=== PATIENT | female | born 1990 | race Caucasian/White ===

== ENCOUNTER 2018-10-02 06:04 | Inpatient (IN) ==
[2018-10-02] MEDS ORDERED: ONDANSETRON 4 MG/2 ML VIAL IV PRN (06:33)
[2018-10-02] MEDS ORDERED: MEPERIDINE 50 MG/1 ML VIAL IM PRN (06:33)
[2018-10-02] MEDS ORDERED: MEPERIDINE 25 MG/1 ML VIAL IM PRN (06:33)
[2018-10-02] MEDS ORDERED: LACTATED RINGERS 250 ML IV ONE (06:33)
[2018-10-02] MEDS ORDERED: OXYTOCIN/LR 20 UNIT/1,000 ML BAG IV SCH (07:00)
[2018-10-02 07:01] LABS: Basophils # 0.1 10*3/uL (0.0-0.2); Basophils % 0.8 % (0.0-0.8); Eosinophils # 0.2 10*3/uL (0.0-0.87); Eosinophils % 2.6 % (0.00-10.9); Hematocrit 29.2 VOL% (35.7-47.0); Hemoglobin 9.8 GM/DL (12.0-16.0); Immature Granulocytes Absolute 0.06 #; Lymphocytes # 1.6 10*3/uL (1.4-4.0); Lymphocytes % 26.6 % (21.3-54.2); Mean Corpuscular HGB Conc 33.6 GM/DL (32-36); Mean Platelet Volume 13.3 FL (9.6-12.0); Monocytes % 8.9 % (1.7-12.7); Neutrophils % 60.1 % (38.7-73.9); Platelet Count 182 T/CUMM (130-400); Red Blood Count 3.32 MC/CUMM (3.8-5.5); Red Cell Distribution Width 12.5 % (9.3-17.3); White Blood Count 6.1 T/CUMM (4-12)
[2018-10-02] MEDS: LACTATED RINGERS 1,000 ML IV SCH ×2 (07:13→17:49)
[2018-10-02 07:19] LABS: Alanine Aminotransferase 15 U/L (13-56); Albumin 2.7 G/DL (3.4-5.0); Alkaline Phosphatase 142 U/L (45-117); Aspartate Amino Transferase 19 U/L (0-37); Bilirubin,Total < 0.39 MG/DL (0.2-1.0); Blood Urea Nitrogen 12 MG/DL (7-18); Calcium 8.7 MG/DL (8.5-10.1); Glucose 75 MG/DL (74-106); Osmolality,Calculated 273.7 MOS/KG (273-304); Total Protein 6.6 G/DL (6.4-8.3)
[2018-10-02] MEDS ORDERED: LACTATED RINGERS 1,000 ML IV ONE (08:14)
[2018-10-02] MEDS ORDERED: CITRIC ACID/SODIUM CITRATE 30 ML UDCUP PO ONE (08:16)
[2018-10-02] MEDS ORDERED: FAMOTIDINE 20 MG/2 ML VIAL IV ONE (08:16)
[2018-10-02] MEDS ORDERED: hydrOXYzine HCL 25 MG/1 ML VIAL IM PRN (08:17)
[2018-10-02] MEDS ORDERED: PROMETHAZINE 25 MG/1 ML VIAL IM ONE (08:17)
[2018-10-02] MEDS ORDERED: diphenhydrAMINE 50 MG/1 ML VIAL IV PRN ×2 (08:17)
[2018-10-02] MEDS ORDERED: NALOXONE 0.4 MG/ML VIAL IV PRN (08:17)
[2018-10-02] MEDS ORDERED: fentaNYL 2 MCG/ROPIV 0.2% EPID 100 ML EPIDURAL SCH (08:30)
[2018-10-02] MEDS ORDERED: LACTATED RINGERS 1,000 ML IV SCH (08:30)
[2018-10-02] MEDS ORDERED: TERBUTALINE 1 MG/1 ML VIAL SUBCUT PRN (10:39)
[2018-10-02] MEDS ORDERED: TERBUTALINE 1 MG/1 ML VIAL SUBCUT ONE (10:43)
[2018-10-02 12:34] LABS: Apearance,Urine CLEAR (Clear); Bilirubin,Urine Negative (Negative); Blood, Urine Negative (Negative); Glucose,Urine (UA) Negative (Negative); Ketones,Urine Negative (Negative); Nitrite,Urine Negative (Negative); Protein,Urine Negative; Urine Color Colorless (Yellow); Urine Specific Gravity 1.003 (1.001-1.035); Urine Urobilinogen < 2.0 EU/DL (0.2-1.0)
[2018-10-02] MEDS: ePHEDrine 50 MG/ML AMP IV PRN ×2 (12:49→13:06)
[2018-10-02] MEDS ORDERED: LIDOCAINE 1% 50 ML VIAL ONE (16:07)
[2018-10-02] MEDS ORDERED: miSOPROStol 200 MCG TABLET ONE (16:08)
[2018-10-02] MEDS ORDERED: METHYLERGONOVINE 0.2 MG/1 ML AMP ONE (16:08)
[2018-10-02 19:32] LABS: Cord Arterial Blood HCO3 18.6 MMOL/L
[2018-10-02 19:39] LABS: Cord Venous Blood HCO3 20.2 MMOL/L; Cord Venous Blood PCO2 46.5 MMHG; Cord Venous Blood PO2 15.5
[2018-10-02] MEDS ORDERED: MEASLES/MUMPS/RUBELLA VACCINE 0.5 ML VIAL SUBCUT ONE (22:50)
[2018-10-02] MEDS ORDERED: WITCH HAZEL PADS 100/JAR TOP PRN (22:50)
[2018-10-02] MEDS ORDERED: DIPH/TET/ACEL PERT BOOSTER VACCINE 0.5 ML VIAL IM ONE (22:50)
[2018-10-02] MEDS ORDERED: RHO(D) IMMUNE GLOBULIN 300 MCG SYRINGE IM ONE (22:50)
[2018-10-02] MEDS ORDERED: IBUPROFEN 800 MG TABLET PO PRN (22:50)
[2018-10-02] MEDS ORDERED: ACETAMINOPHEN 325 MG TABLET PO PRN (22:50)
[2018-10-02] MEDS ORDERED: LANOLIN 50% CREAM 0.3 OZ TUBE TOP PRN (22:50)
[2018-10-02] MEDS ORDERED: HYDROCORTISONE 2.5% RECTAL CREAM 30 GM TUBE TOP PRN (22:50)
[2018-10-02] MEDS ORDERED: BISACODYL 10 MG SUPP RECTAL PRN (22:50)
[2018-10-02] MEDS ORDERED: BENZOCAINE 20%/MENTHOL 0.5% SPRAY 56 GM CAN TOP PRN (22:50)
[2018-10-02] MEDS ORDERED: oxyCODONE/ACETAMINOPHEN 5-325 MG TABLET PO PRN ×2 (22:50)
[2018-10-03 04:49] LABS: Basophils # 0.1 10*3/uL (0.0-0.2); Basophils % 0.6 % (0.0-0.8); Eosinophils # 0.1 10*3/uL (0.0-0.87); Hematocrit 22.4 VOL% (35.7-47.0); Hemoglobin 7.4 GM/DL (12.0-16.0); Immature Granulocytes % 0.8 %; Immature Granulocytes Absolute 0.07 #; Lymphocytes # 1.5 10*3/uL (1.4-4.0); Lymphocytes % 16.7 % (21.3-54.2); Mean Corpuscular Volume 90.7 FL (87-102); Mean Platelet Volume 13.2 FL (9.6-12.0); Monocytes % 7.6 % (1.7-12.7); Neutrophils % 73.3 % (38.7-73.9); Platelet Count 126 T/CUMM (130-400); Red Blood Count 2.47 MC/CUMM (3.8-5.5); Red Cell Distribution Width 12.6 % (9.3-17.3); White Blood Count 8.7 T/CUMM (4-12)
[2018-10-03] MEDS: DOCUSATE SODIUM 100 MG CAPSULE PO SCH ×3 (06:18→20:42)
[2018-10-03] MEDS: FERROUS SULFATE 325 MG TABLET PO SCH ×3 (08:35→20:41)
[2018-10-03] MEDS ORDERED: FERROUS SULFATE 325 MG TABLET PO SCH (09:00)
[2018-10-04 07:31] VITALS: BP 95/64
[2018-10-04] MEDS: FERROUS SULFATE 325 MG TABLET PO SCH (10:00)
[2018-10-04] MEDS: DOCUSATE SODIUM 100 MG CAPSULE PO SCH (10:00)
== END 2018-10-04 12:05 | disposition home or self-care (01) | DRG 807 ==
LOC: N.LDOUT 06:04 → N.LD 06:07 → N.OB 22:36
PROVIDERS: ADMIT Obstetrics & Gynecology; ATTEND Obstetrics & Gynecology